=== PATIENT | female | born 1995 | race Caucasian/White ===

== ENCOUNTER → 2020-07-04 | Outpatient (CLI) | payer BC, OTHER | LOC: EROP 17:56 | DX: U07.1 COVID-19 (principal) | CPT/HCPCS: U0002 ==

== ENCOUNTER → 2021-12-03 | Outpatient (CLI) | payer BC, OTHER | LOC: MRI 12:35 | DX: H93.A9 Pulsatile tinnitus, unspecified ear (principal); H92.09 Otalgia, unspecified ear | CPT/HCPCS: 70553; A9577 ==